=== PATIENT | male | born 1950 | race Caucasian/White ===

== ENCOUNTER 2021-07-16 11:02 | Emergency (ER) | payer MEDICARE, OTHER ==
[2021-07-16 11:38] LABS: EOSINOPHIL 2.2 % (0-7); HCT 45.3 % (42.0-52.0); HGB 15.2 g/dl (13.2-18.0); LYMPHOCYTE 15.7 % (15-48); MCH 30.6 pg (25.0-31.0); MCHC 33.6 g/dL (32.0-36.0); MCV 91.3 fL (78.0-100.0); MONOCYTE 7.1 % (0-12); MPV 11.5 fL (6.0-9.5); NEUTROPHIL 73.2 % (41-80); NRBC 0; PLT 198 K/uL (150-400); RBC 4.96 M/uL (4.70-6.00); WBC 7.7 K/uL (4.0-10.5)
[2021-07-16 11:52] LABS: PROTHROMBIN TIME 12.6 SECONDS (11.8-13.4); PTT 25.2 SECONDS (24.4-34.7)
[2021-07-16 12:01] LABS: ALBUMIN 4.5 g/dL (3.4-5.0); BILIRUBIN - TOTAL 0.4 mg/dL (0.2-1.0); CREATININE 1.88 mg/dL (0.67-1.17); GLOBULIN (CALCULATION) 2.9 g/dL; POTASSIUM 4.7 mmol/L (3.5-5.1); TOTAL PROTEIN 7.4 g/dL (6.4-8.2)
== END 2021-07-16 19:10 | disposition other institution (70) ==
LOC: FER 11:02
PROVIDERS: Emergency Medicine
DX: I20.0 Unstable angina (principal); E11.9 Type 2 diabetes mellitus without complications; I10 Essential (primary) hypertension; Z20.822 Contact with and (suspected) exposure to COVID-19; Z87.891 Personal history of nicotine dependence; Z79.84 Long term (current) use of oral hypoglycemic drugs
CPT/HCPCS: 36415; 71045; 80053; 84484; 85025; 85610; 85730; 93005; 96372; J1644; J3490; J7030; U0002